=== PATIENT | male | born 1975 | race Caucasian/White ===

== ENCOUNTER 2016-12-02 14:31 | Outpatient (CLI) | payer OTHER | END 2016-12-02 14:32 | disposition home or self-care (01) | LOC: RT 14:31 | PROVIDERS: ATTEND Naturopath | DX: R06.02 Shortness of breath (principal); I10 Essential (primary) hypertension; R53.82 Chronic fatigue, unspecified | CPT/HCPCS: 93005 ==

== ENCOUNTER 2021-07-01 21:20 | Outpatient (CLI) | payer OTHER | END 2021-07-01 21:21 | disposition critical access hospital (66) | LOC: EMS 21:20 | DX: F41.9 Anxiety disorder, unspecified (principal); R03.0 Elevated blood-pressure reading, without diagnosis of hypertension | CPT/HCPCS: A0425; A0429 ==

== ENCOUNTER 2021-07-01 21:42 | Emergency (ER) | payer OTHER ==
[2021-07-01 23:46] LABS: BASOPHILS % (AUTO) 0.4 %; EOSINOPHILS # (AUTO) 0.1 10^3/uL (0.0-0.7); EOSINOPHILS % (AUTO) 1.1 %; HCT - HEMATOCRIT 44.4 % (42.0-52.0); HGB - HEMOGLOBIN 14.8 g/dL (14.0-18.0); LYMPHOCYTES # (AUTO) 2.9 10^3/uL (1.5-3.5); LYMPHOCYTES % (AUTO) 34.3 %; MEAN CORPUSCULAR HEMOGLOBIN 28.3 pg (27.0-31.0); MEAN CORPUSCULAR HGB CONC 33.3 g/dL (32.0-36.0); MEAN CORPUSCULAR VOLUME 84.9 fL (80.0-94.0); MEAN PLATELET VOLUME 8.7 fL (7.4-11.4); MONOCYTES # (AUTO) 0.7 10^3/uL (0.0-1.0); MONOCYTES % (AUTO) 8.5 %; NEUTROPHILS # (AUTO) 4.7 10^3/uL (1.5-6.6); NEUTROPHILS % (AUTO) 55.6 %; PLT - PLATELET COUNT 234 10^3/uL (130-450); RED BLOOD COUNT 5.23 10^6/uL (4.70-6.10); WHITE BLOOD COUNT 8.5 x10^3/uL (4.8-10.8)
[2021-07-01 23:55] VITALS: BP 182/117
[2021-07-01 23:57] LABS: ALBUMIN 4.4 g/dL (3.2-5.5); ALBUMIN/GLOBULIN RATIO 1.8 (1.0-2.2); BILIRUBIN,TOTAL 1.3 mg/dL (0.2-1.0); CALCIUM 9.2 mg/dL (8.5-10.3); CREATININE 0.9 mg/dL (0.6-1.2); POTASSIUM 3.3 mmol/L (3.5-5.0); TOTAL PROTEIN 6.9 g/dL (6.7-8.2)
--- NOTE | 2021-07-02 00:04 | XRAY Report ---
PROCEDURE: Chest 1 View X-Ray INDICATIONS: CP TECHNIQUE: One view of the chest was acquired. COMPARISON: None. FINDINGS: Surgical changes and devices: None. Lungs and pleura: No pleural effusions or pneumothorax. Lungs are clear. Mediastinum: Mediastinal contours appear normal. Heart size is normal. Bones and chest wall: No suspicious bony lesions. Overlying soft tissues appear unremarkable. IMPRESSION: 1. No acute cardiopulmonary disease. Reviewed by: Abel Almaguer MD on 07/02/2021 12:05 AM PDT Approved by: Abel Almaguer MD on 07/02/2021 12:05 AM PDT Station ID: [id number]
[2021-07-02] MEDS ORDERED: POTASSIUM CHLORIDE 20 MEQ TABLET PO STA (00:43)
--- NOTE | 2021-07-02 00:47 | ED Physician Documentation ---
History of Present Illness - Stated complaint Stated Complaint: ANXIETY/HTN - Chief complaint Chief Complaint: General - History obtained from History obtained from: Patient - Additonal information Additional information: Patient with a history of hypertension presenting for evaluation of elevated blood pressure and feeling anxious. He recently took himself off of hormone replacements For low testosterone. Recently he has had hypertension and his PCP has prescribed him propanolol 40 mg to be taken once daily and then to increase to twice daily. He has previously been on other blood pressure medications like amlodipine and a diuretic but states he did not tolerate these. He was concerned about starting this new blood pressure medication given previous intolerance to other antihypertensives as well as to the hormone replacement medications. Although he was supposed to take a full pill he has only been taking a quarter of a pill for the last 3 days. Earlier This afternoon, patient reported feelingHis heart racing and an anxious feeling. He took his blood pressure later at home and noted that it was elevated. He took another half pill of his propanolol. He called EMS who confirmed that his blood pressure was elevated and was directed to the emergency department. He denies headache, visual changes, chest pain, difficulty breathing, abdominal pain, vomiting, weakness, numbness.He currently reports feeling back to his normal. He does not feel suicidal or homicidal. Review of Systems Constitutional: denies: Fever Eyes: denies: Loss of vision Nose: denies: Congestion Cardiac: reports: Palpitations. denies: Chest pain / pressure Respiratory: denies: Dyspnea, Cough GI: denies: Abdominal Pain, Nausea, Vomiting : denies: Dysuria Skin: denies: Rash Musculoskeletal: denies: Back pain Neurologic: denies: Syncope, Headache Psychiatric: reports: Anxiety PD PAST MEDICAL HISTORY - Past Medical History Past Medical History: Yes Cardiovascular: Hypertension Respiratory: Sleep apnea, CPAP use Endocrine/Autoimmune: Other Psych: Anxiety Other Past Medical History: low testosterone tx with hormones - Past Surgical History Past Surgical History: No - Allergies Allergies/Adverse Reactions: Allergies Allergy/AdvReac Type Severity Reaction Status Date / Time No Known Drug Allergies Allergy Verified 07/01/21 21:48 - Social History Does the pt smoke?: No Smoking Status: Never smoker Does the pt drink ETOH?: No Does the pt have substance abuse?: No PD ED PE NORMAL - General General: Alert and oriented X 3, No acute distress, Well developed/nourished - HEENT HEENT: Atraumatic, PERRL, Moist mucous membranes - Neck Neck: Supple, no meningeal sign - Cardiac Cardiac: RRR, No murmur, Strong equal pulses - Respiratory Respiratory: No respiratory distress, Clear bilaterally - Abdomen Abdomen: Normal bowel sounds, Soft, Non tender - Derm Derm: Normal color, Warm and dry - Extremities Extremities: No deformity, No edema - Neuro Neuro: Alert and oriented X 3, 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, No motor deficit, Normal speech - Psych Psych: Normal mood, Normal affect Results - Vitals Vitals: Vital Signs - 24 hr 07/01/21 07/01/21 07/01/21 21:48 21:52 23:54 Temperature 37.3 C 37.3 C Heart Rate 73 73 64 Respiratory 18 18 16 Rate Blood Pressure 201/119 H 201/119 H 182/117 H O2 Saturation 100 100 100 07/02/21 00:56 Temperature Heart Rate Respiratory 15 Rate Blood Pressure O2 Saturation Oxygen O2 Source Room air - EKG (time done) 2201 Rate: Rate (enter#) (66) Rhythm: NSR [place]: LAD Ischemia: No: ST elevation c/w ischemia Computer interpretation: Agree with computer - Labs Labs: Laboratory Tests 07/01/21 07/01/21 07/01/21 23:40 23:40 23:40 WBC 8.5 RBC 5.23 Hgb 14.8 Hct 44.4 MCV 84.9 MCH 28.3 MCHC 33.3 RDW 14.0 Plt Count 234 MPV 8.7 Neut # (Auto) 4.7 Lymph # (Auto) 2.9 [place] # (Auto) 0.7 Eos # (Auto) 0.1 Baso # (Auto) 0.0 Absolute Nucleated RBC 0.00 Nucleated RBC % 0.0 Sodium 139 Potassium 3.3 L Chloride 102 Carbon Dioxide 28 Anion Gap 9.0 BUN 13 Creatinine 0.9 Estimated GFR (MDRD) 92 Glucose 106 H Calcium 9.2 Total Bilirubin 1.3 H AST 22 ALT 33 Alkaline Phosphatase 53 Troponin I High Sens 6.8 Total Protein 6.9 Albumin 4.4 Globulin 2.5 Albumin/Globulin Ratio 1.8 PD MEDICAL DECISION MAKING - ED course Complexity details: reviewed results, d/w patient ED course: Patient who was recently started on a new antihypertensive presenting for evaluation of elevated blood pressure readings and feeling anxious. EKG is without acute ischemia. Labs are reassuring; no signs of endorgan damage. Troponin is negative and do not think he needs a repeat as his symptoms have been ongoing all afternoon.Patient has become symptom-free while in the emergency department. Blood pressure remains elevated but again he is essentially asymptomatic. He has not been taking his medication as directed and only took a quarter of his pill earlier today and then took another half later today. He was instructed on the need to take a full dose tomorrow morning as prescribed. He was counseled on concerning symptoms to return for. Departure - Departure Disposition: Home, Self Care Clinical Impression: Uncontrolled hypertension, Hypokalemia Condition: Stable Instructions: ED Hypertension Conf Out Of Control Comments: Your evaluated for elevated blood pressure today. Your labs were overall reassuring. Your potassium was slightly low and you were given a potassium pill for this. Your EKG did not show any significant irregularities and your blood test did not show signs of a heart attack. Your blood pressure did stay elevated but at this time you do not appear to have any symptoms from it.Because you do not have any symptoms we do not need to rapidly lower your blood pressure. You should start taking your blood pressure medication tomorrow morning as prescribed with the full dose. Please take your blood pressure medication every day. Please have close follow-up with your primary care doctor. If you develop any symptoms such as headache, changes in your vision, chest pain, difficulty breathing, weakness on one side Or with any concerns you need to return immediately to the emergency department. Discharge Date/Time: 07/02/21 00:57
== END 2021-07-02 00:57 | disposition home or self-care (01) ==
LOC: EDUNIT# → ED 21:42
DX: I10 Essential (primary) hypertension (principal); E87.6 Hypokalemia
CPT/HCPCS: 36415; 71045; 80053; 84484; 85025; 93005; 99283; 99284; A9270

== ENCOUNTER 2021-07-05 09:07 | Outpatient (CLI) | payer OTHER ==
[2021-07-05 15:48] LABS: ALBUMIN 4.1 g/dL (3.2-5.5); BILIRUBIN,TOTAL 2.1 mg/dL (0.2-1.0); CALCIUM 9.5 mg/dL (8.5-10.3); CREATININE 0.9 mg/dL (0.6-1.2); POTASSIUM 3.9 mmol/L (3.5-5.0); TOTAL PROTEIN 6.1 g/dL (6.7-8.2)
== END 2021-07-05 09:08 | disposition home or self-care (01) ==
LOC: LAB.S 09:07
PROVIDERS: ATTEND Family Medicine
DX: E87.6 Hypokalemia (principal); I16.0 Hypertensive urgency; I15.9 Secondary hypertension, unspecified
CPT/HCPCS: 36415; 80053; 82088; 84244

== ENCOUNTER 2021-07-15 20:23 | Outpatient (CLI) | payer OTHER ==
--- NOTE | 2021-07-16 10:41 | Ultrasound Report ---
PROCEDURE: Retroperitoneal INDICATIONS: HTN TECHNIQUE: Real-time scanning was performed of the retroperitoneal organs, with image documentation. COMPARISON: None. FINDINGS: Right kidney measures 13.5 cm in long axis. Left kidney measures 14 cm in long axis. Both kidneys dem onstrate normal cortical echogenicity and thickness. There is no evidence of renal atrophy, renal mas s, or hydronephrosis. No shadowing calculus identified. Prevoid urinary bladder volume is 460 mL. Post void urinary bladder volume is 27 mL. No bladder wall thickening. Bilateral ureteral jets noted. Prostate is within normal limits. IMPRESSION: Normal study. Reviewed by: Khadar Crowell MD on 07/16/2021 10:40 AM PDT Approved by: Khadar Crowell MD on 07/16/2021 10:40 AM PDT Station ID: [id number]
== END 2021-07-15 20:24 | disposition home or self-care (01) ==
LOC: DI 20:23
PROVIDERS: ATTEND Family Medicine
DX: I10 Essential (primary) hypertension (principal)

== ENCOUNTER 2021-07-19 21:03 | Emergency (ER) | payer OTHER ==
--- NOTE | 2021-07-19 21:29 | ED Physician Documentation ---
PD HPI CHEST PAIN - Stated complaint Stated Complaint: HIGH BP - Chief complaint Chief Complaint: Cardiac - History obtained from History obtained from: Patient - Additional information Additional information: 45-year-old gentleman presents for the evaluation of asymptomatic elevated blood pressure. He is currently on propranolol at a dose of 40 mg 3 times a day. He had been having a lot of problems with palpitation anxiety and that is much better since starting the propranolol. Tonight he ate a homemade pizza and wonders if it had too much salt and started to feel like his heart was pounding and then took his blood pressure multiple times and it was high. He denies chest pain, trouble breathing, abdominal pain, or headache. He is already had a fairly thorough outpatient work-up for hypertension including a normal retroperitoneal ultrasound, unremarkable EKG and normal renal function on labs. He was prescribed low-dose valsartan by his physician to start soon but has not gotten a call from the pharmacy yet that is ready. Review of Systems Constitutional: denies: Fever, Chills Cardiac: denies: Chest pain / pressure, Pedal edema, Calf pain Respiratory: denies: Dyspnea, Cough PD PAST MEDICAL HISTORY - Past Medical History Cardiovascular: Hypertension Respiratory: Sleep apnea, CPAP use Endocrine/Autoimmune: Other Psych: Anxiety - Past Surgical History Past Surgical History: No - Allergies Allergies/Adverse Reactions: Allergies Allergy/AdvReac Type Severity Reaction Status Date / Time No Known Drug Allergies Allergy Verified 07/19/21 21:17 - Social History Does the pt smoke?: No Smoking Status: Never smoker Does the pt drink ETOH?: No Does the pt have substance abuse?: No PD ED PE NORMAL - Vitals Vital signs reviewed: Yes - General General: Alert and oriented X 3, No acute distress - Extremities Extremities: No edema, No calf tenderness / cord - Neuro Neuro: Alert and oriented X 3, Normal speech Results - Vitals Vitals: Vital Signs - 24 hr 07/19/21 21:10 Temperature 36.1 C L Heart Rate 65 Respiratory 16 Rate Blood Pressure 161/98 H O2 Saturation 98 Oxygen O2 Source Room air PD MEDICAL DECISION MAKING - ED course Complexity details: reviewed old records ED course: In accordance with the [facility] clinical policy from April 2012, this patient has asymptomatic elevated blood pressure without evidence of acute target organ injury. There are also no signs of acute stroke, cardiac ischemia, pulmonary edema, encephalopathy or acute congestive heart failure. Therefore the patient will be referred to their primary care provider for follow-up of their asymptomatic hypertension. Departure - Departure Disposition: 01 Home, Self Care Clinical Impression: Essential hypertension Condition: Good Record reviewed to determine appropriate education?: Yes Instructions: ED HTN Established Comments: Reasonable to start the valsartan that your physician prescribed a soon as p ossible and follow-up with her for further evaluation and treatment. Return for new or worsening symptoms.
[2021-07-19] MEDS: LOSARTAN 50 MG TABLET PO STA (21:36)
[2021-07-19 21:43] VITALS: BP 179/89
== END 2021-07-19 21:43 | disposition home or self-care (01) ==
LOC: ED 21:03
DX: I10 Essential (primary) hypertension (principal)
CPT/HCPCS: 99282; A9270

== ENCOUNTER 2022-05-20 02:28 | Outpatient (CLI) | payer OTHER | END 2022-05-20 22:00 | disposition critical access hospital (66) | LOC: EMS 02:28 | DX: R07.89 Other chest pain (principal); R61 Generalized hyperhidrosis | CPT/HCPCS: A0425; A0429 ==

== ENCOUNTER 2022-05-20 03:33 | Emergency (ER) | payer OTHER ==
--- NOTE | 2022-05-20 03:56 | ED Physician Documentation ---
PD HPI CHEST PAIN - Stated complaint Stated Complaint: CHEST PX - Chief complaint Chief Complaint: Cardiac - History obtained from History obtained from: Patient - Additional information Additional information: Patient is a 46-year-old with a history of hypertension presenting for evaluation of right-sided chest pain that started at 215 and woke him up from his sleep. He describes it as a discomfort and achiness. It was located around his shoulder. It has since improved.He denies worsening pain with exertion or inspiration.There is no other radiation to the pain.He called 911 and was directed to take aspirin which she did. He denies a history of similar symptoms recently. He is active. He denies recent travel or immobilization, leg swelling.He denies recent illness. Review of Systems Constitutional: denies: Fever Cardiac: reports: Chest pain / pressure Respiratory: denies: Dyspnea GI: denies: Abdominal Pain Musculoskeletal: denies: Back pain Neurologic: denies: Headache PD PAST MEDICAL HISTORY - Past Medical History Cardiovascular: Hypertension Respiratory: Sleep apnea, CPAP use Endocrine/Autoimmune: Other Psych: Anxiety - Past Surgical History Past Surgical History: No - Allergies Allergies/Adverse Reactions: Allergies Allergy/AdvReac Type Severity Reaction Status Date / Time No Known Drug Allergies Allergy Verified 05/20/22 03:47 - Social History Does the pt smoke?: No Smoking Status: Never smoker Does the pt drink ETOH?: No Does the pt have substance abuse?: No PD ED PE NORMAL - General General: Alert and oriented X 3, No acute distress, Well developed/nourished - HEENT HEENT: Atraumatic - Neck Neck: Supple, no meningeal sign - Cardiac Cardiac: RRR, No murmur - Respiratory Respiratory: No respiratory distress, Clear bilaterally - Abdomen Abdomen: Soft, Non tender - Derm Derm: Warm and dry - Extremities Extremities: No edema, No calf tenderness / cord - Neuro Neuro: Normal speech Results - Vitals Vitals: Vital Signs - 24 hr 05/20/22 05/20/22 03:47 04:10 Temperature 36.8 C Heart Rate 67 68 Respiratory 16 15 Rate Blood Pressure 148/100 H 144/94 H O2 Saturation 98 98 Oxygen O2 Source Room air - EKG (time done) 0339 Rate: Rate (enter#) (64) Rhythm: NSR Intervals: No: Prolonged QT Ischemia: No: ST elevation c/w ischemia, ST depression - Labs Labs: Laboratory Tests 05/20/22 05/20/22 05/20/22 03:40 03:40 03:40 WBC 10.1 RBC 5.82 Hgb 16.0 Hct 49.7 MCV 85.4 MCH 27.5 MCHC 32.2 RDW 13.9 Plt Count 234 MPV 9.0 Neut # (Auto) 7.1 H Lymph # (Auto) 2.1 [place] # (Auto) 0.7 Eos # (Auto) 0.1 Baso # (Auto) 0.0 Absolute Nucleated RBC 0.00 Nucleated RBC % 0.0 Sodium 139 Potassium 3.3 L Chloride 100 L Carbon Dioxide 29 Anion Gap 10.0 BUN 15 Creatinine 1.0 Estimated GFR (MDRD) 81 L Glucose 123 H Calcium 9.6 Total Bilirubin 1.4 H AST 30 ALT 43 Alkaline Phosphatase 40 L Troponin I High Sens 6.7 Total Protein 7.1 Albumin 4.1 Globulin 3.0 Albumin/Globulin Ratio 1.4 Lipase 78 H 05/20/22 05:41 WBC RBC Hgb Hct MCV MCH MCHC RDW Plt Count MPV Neut # (Auto) Lymph # (Auto) [place] # (Auto) Eos # (Auto) Baso # (Auto) Absolute Nucleated RBC Nucleated RBC % Sodium Potassium Chloride Carbon Dioxide Anion Gap BUN Creatinine Estimated GFR (MDRD) Glucose Calcium Total Bilirubin AST ALT Alkaline Phosphatase Troponin I High Sens 6.1 Total Protein Albumin Globulin Albumin/Globulin Ratio Lipase PD Medical Decision Making - ED course Complexity details: reviewed results, re-evaluated patient, d/w patient ED course: Patient presenting for evaluation of chest pain. EKG is reviewed and without signs of acute ischemia.Patient is a PERC negative. No migratory or tearing symptoms to suggest a dissection. High-sensitivity troponin is negative x2. Chest x-ray was also reviewed and is negative for pneumothorax, pneumonia or sig nificantly enlarged heart. Patient is feeling better here. He was counseled on need for close follow-up with his primary care doctor and also advised on strict return precautions. Departure - Departure Disposition: 01 Home, Self Care Clinical Impression: Chest pain, Hypokalemia Condition: Stable Instructions: ED Chest Pain Atypical Unkn Cause Comments: You were evaluated for chest pain. At this time it is unclear what is causing your symptoms And you may need further testing. I would recommend close follow- up with your primary care doctor as you may need additional evaluation such as a stress test. Your potassium was also slightly low and we did give you a potassium pill. Please make sure to get plenty of rest and stay hydrated today. If it anytime you have any new or worsening symptoms please consider return to the emergency department.
[2022-05-20 03:57] LABS: BASOPHILS % (AUTO) 0.3 %; EOSINOPHILS # (AUTO) 0.1 10^3/uL (0.0-0.7); EOSINOPHILS % (AUTO) 1.3 %; HCT - HEMATOCRIT 49.7 % (42.0-52.0); LYMPHOCYTES # (AUTO) 2.1 10^3/uL (1.5-3.5); LYMPHOCYTES % (AUTO) 20.6 %; MEAN CORPUSCULAR HEMOGLOBIN 27.5 pg (27.0-31.0); MEAN CORPUSCULAR HGB CONC 32.2 g/dL (32.0-36.0); MEAN CORPUSCULAR VOLUME 85.4 fL (80.0-94.0); MONOCYTES # (AUTO) 0.7 10^3/uL (0.0-1.0); MONOCYTES % (AUTO) 7.3 %; NEUTROPHILS # (AUTO) 7.1 10^3/uL (1.5-6.6); NEUTROPHILS % (AUTO) 70.1 %; PLT - PLATELET COUNT 234 10^3/uL (130-450); RED BLOOD COUNT 5.82 10^6/uL (4.70-6.10); RED CELL DISTRIBUTION WIDTH 13.9 % (12.0-15.0); WHITE BLOOD COUNT 10.1 x10^3/uL (4.8-10.8)
[2022-05-20 04:12] LABS: ALBUMIN 4.1 g/dL (3.2-5.5); ALBUMIN/GLOBULIN RATIO 1.4 (1.0-2.2); BILIRUBIN,TOTAL 1.4 mg/dL (0.2-1.0); CALCIUM 9.6 mg/dL (8.5-10.3); POTASSIUM 3.3 mmol/L (3.5-5.0); TOTAL PROTEIN 7.1 g/dL (6.7-8.2)
[2022-05-20] MEDS ORDERED: POTASSIUM CHLORIDE 20 MEQ TABLET PO STA (04:22)
[2022-05-20 06:32] VITALS: BP 151/83
--- NOTE | 2022-05-20 07:53 | XRAY Report ---
PROCEDURE: Chest 1 View X-Ray INDICATIONS: Chest pain TECHNIQUE: One view of the chest was acquired. COMPARISON: 07/01/2021 FINDINGS: Surgical changes and devices: None. Lungs and pleura: No pleural effusions or pneumothorax. Lungs are clear. Mediastinum: Mediastinal contours appear normal. Heart size is normal. Bones and chest wall: No suspicious bony lesions. Overlying soft tissues appear unremarkable. IMPRESSION: No evidence acute pulmonary process. Findings are concordant with preliminary interpretation provided by [facility]. Reviewed by: Catarino Sim MD on 05/20/2022 7:52 AM PST Approved by: Catarino Sim MD on 05/20/2022 7:52 AM PST Station ID: [id number]
== END 2022-05-20 06:30 | disposition home or self-care (01) ==
LOC: ED 03:33
DX: R07.89 Other chest pain (principal); E87.6 Hypokalemia; I10 Essential (primary) hypertension
CPT/HCPCS: 36415; 71045; 80053; 83690; 84484; 85025; 93005; 99284; A9270